=== PATIENT | male | born 1955 | race Caucasian/White ===

== ENCOUNTER 2020-10-01 15:34 | Emergency (ER) | payer OTHER ==
[2020-10-01] MEDS ORDERED: BACTRIM DS TAB1 EACH PO (18:45)
[2020-10-01] MEDS ORDERED: KEFLEX CAP 500500 MG PO (18:45)
== END 2020-10-01 18:56 | disposition home or self-care (01) ==
LOC: ER1 15:34
DX: L05.91 Pilonidal cyst without abscess (principal); E11.9 Type 2 diabetes mellitus without complications; J44.9 Chronic obstructive pulmonary disease, unspecified; F17.200 Nicotine dependence, unspecified, uncomplicated
CPT/HCPCS: 99282

== ENCOUNTER → 2022-02-28 | Outpatient (CLI) | payer OTHER ==
[~2022-02-28] MED LIST: BACTRIM DS TAB1 EACH PO; KEFLEX CAP 500500 MG PO
[2022-02-28 10:18] LABS: BUN/CREATININE RATIO 17 (0-10)
[2022-03-01 06:42] LABS: CREATININE, URINE 49.7 mg/dL (Not Estab.)
== END ==
LOC: LAB 09:27
PROVIDERS: Family Medicine
DX: E11.9 Type 2 diabetes mellitus without complications (principal)
CPT/HCPCS: 80053; 80061; 82043; 82570; 83036